=== PATIENT | male | born 1990 | race Caucasian/White ===

== ENCOUNTER 2016-09-02 12:25 | Emergency (ER) | END 2016-09-02 15:15 | disposition home or self-care (01) | DX: S83.005A Unspecified dislocation of left patella, initial encounter (principal); X50.1XXA Overexertion from prolonged static or awkward postures, initial encounter; Y92.9 Unspecified place or not applicable | CPT/HCPCS: 73562; 96372; J1885; Z7502 ==

== ENCOUNTER 2017-01-06 13:33 | Emergency (ER) | payer OTHER ==
[~2017-01-06] VITALS: Ht 185.4 cm; Wt 110.0 kg
[~2017-01-06 13:33] MED LIST: TRAM50TA2 PO
[2017-01-06 13:37] VITALS: Ht 185.4 cm; Wt 110.0 kg
[2017-01-06] MEDS ORDERED: ONDANSETRON (ODT) 4 MG TAB ODT STA (15:30)
[2017-01-06] MEDS ORDERED: LIDOCAINE/MYLANTA 40 ML BTL PO STA (15:30)
[2017-01-06] MEDS ORDERED: FAMOTIDINE 20 MG TAB PO STA (15:30)
[2017-01-06 15:44] LABS: ADD UMIC NO; URINE BILIRUBIN (Dip) NEGATIVE (NEGATIVE); URINE BLOOD (Dip) NEGATIVE (NEGATIVE); URINE COLOR LT. YELLOW (YELLOW); URINE GLUCOSE (Dip) NEGATIVE (NEGATIVE); URINE KETONES (Dip) NEGATIVE (NEGATIVE); URINE LEUKOCYTE ESTERASE (Dip) NEGATIVE (NEGATIVE); URINE NITRITE (Dip) NEGATIVE (NEGATIVE); URINE TOTAL PROTEIN (Dip) NEGATIVE (NEGATIVE); URINE UROBILINOGEN (Dip) 0.2 E.U./dL (0.1-1.0)
--- NOTE | 2017-01-06 16:09 | RADRPT ---
PROCEDURE: US Abdomen. CLINICAL INDICATION: 26-year-old male with abdominal pain. TECHNIQUE: Multiple real-time images were acquired of the patient's abdomen and retroperitoneum ut ilizing a high resolution transducer. COMPARISON: None FINDINGS: The pancreas is obscured by bowel gas. The liver is enlarged measuring 16.8 cm. There is increased echogenicity of the liver with no hepatic mass identified. The hepatic and portal veins are patent. The gallbladder wall measures 2.1 mm. A small amount of sludge is noted in the gallbladder. The com mon bile duct measured 3.8 mm and is normal. The right kidney is normal measuring 11.8 cm in length. IMPRESSION: 1. Increased echogenicity of the liver is noted and most commonly as a result of fatty infiltration. Steatohepatitis, vacuolar degeneration and cirrhosis of the liver are other causes. 2. Possible sludge in the gallbladder. 3. Normal right kidney with no evidence of hydronephrosis. RPTAT:AAJJ Physician Jaz Date Time Electronically viewed and signed by Physician Jaz on 01/06/2017 16:09 JONATHON/
[2017-01-06 16:33] LABS: ADD SCAN DIFF NO
[2017-01-06 16:34] LABS: BASOPHILS % 0.3 % (0.0-2.0); EOSINOPHILS # 0.2 10^3/ul (0.0-0.5); EOSINOPHILS % 2.6 % (0.0-7.0); HEMATOCRIT 44.6 % (42.0-52.0); HEMOGLOBIN 14.7 g/dl (14.0-18.0); LYMPHOCYTES # 1.8 10^3/ul (0.8-2.9); MEAN CORPUSCULAR HEMOGLOBIN 28.5 pg (29.0-33.0); MEAN CORPUSCULAR VOLUME 86.6 fl (82.0-101.0); MEAN PLATELET VOLUME 9.4 fl (7.4-10.4); MONOCYTE # 0.4 10^3/ul (0.3-0.9); MONOCYTES % 6.7 % (0.0-11.0); NEUTROPHIL # 3.4 10^3/ul (1.6-7.5); NEUTROPHILS % 59.2 % (39.0-77.0); PLATELET COUNT 274 10^3/UL (140-415); RED BLOOD COUNT 5.15 10^6/ul (4.70-6.10); RED CELL DISTRIBUTION WIDTH 13.7 % (11.5-14.5); WHITE BLOOD COUNT 5.8 10^3/ul (4.8-10.8)
[2017-01-06 16:54] LABS: ALBUMIN 4.4 g/dl (3.3-4.9); ALBUMIN/GLOBULIN RATIO 1.15; BILIRUBIN,INDIRECT 0.2 mg/dl (0-1.1); BILIRUBIN,TOTAL 0.2 mg/dl (0.2-1.3); CALCIUM 9.4 mg/dl (8.4-10.2); CREATININE 0.77 mg/dl (0.61-1.24); POTASSIUM 4.8 mmol/L (3.5-5.1); TOTAL PROTEIN 8.2 g/dl (6.1-8.1)
[2017-01-06] MEDS ORDERED: NAPR-260 PO (17:20)
[2017-01-06] MEDS ORDERED: HYDR-906 PO (17:20)
[2017-01-06] MEDS ORDERED: ONDA4TAB14 PO (17:21)
--- NOTE | 2017-01-06 18:44 | ERD ---
ER Documentation Chief Complaint Date/Time DATE: 01/06/17 TIME: 18:43 Chief Complaint ap onset yesterday HPI Patient is a 26-year-old male with no past medical history who presents to the ED with epigastric pain 2 days. He states that the pain came on yesterday. He states that the pain has come and gone and states that the highest is been is a 9 out of 10. He has not taken any medication for symptoms. Denies vomiting or diarrhea. He states he does not have a decrease in appetite and is tolerating food and fluids. Had a normal appetite today. Last bowel movement was today. Denies fever or chills. Denies headache or dizziness. Denies chest pain, cough, shortness of breath or difficulty breathing. Denies recent travel or change in foods. No other complaints. ROS All systems reviewed and are negative except as per history of present illness. Medications Home Meds Active Scripts Ondansetron (Ondansetron Odt) 4 Mg Tab.rapdis, 4 MG PO Q6H Y for NAUSEA AND/OR VOMITING, #10 TAB Prov:SABA ROSALES PA-C 01/06/17 Hydrocodone/Acetaminophen ([place]asta 5-325 Tablet) 1 Each Tablet, 1 TAB PO Q6H Y for PAIN, #5 TAB Prov:SABA ROSALESC 01/06/17 Naproxen* (Naprosyn*) 500 Mg Tablet, 500 MG PO BID Y for PAIN AND/OR INFLAMMATION, #30 TAB Prov:SABA ROSALES-C 01/06/17 Tramadol HCl (Tramadol HCl) 50 Mg Tablet, 50 MG PO Q4 Y for PAIN, #10 TAB Prov:SABA ROSALES-C 09/02/16 Allergies Allergies: Coded Allergies: No Known Allergy (Unverified , 09/02/16) PMhx/Soc History of Surgery: Yes (Right knee 2014) Anesthesia Reaction: No Hx Neurological Disorder: No Hx Respiratory Disorders: No Hx Cardiac Disorders: No Hx Psychiatric Problems: No Hx Miscellaneous Medical Probl: No Hx Alcohol Use: No Hx Substance Use: No Hx Tobacco Use: Yes Smoking Status: Current every day smoker (3 cigarettes a day) FmHx Family History: No coronary disease, No diabetes, No other Physical Exam Vitals Vital Signs Date Time Temp Pulse Resp B/P Pulse Ox O2 Delivery O2 Flow Rate FiO2 01/06/17 13:37 97.8 90 18 131/77 97 Physical Exam GENERAL: Well-developed, well-nourished male. Appears in no acute distress. HEAD: Normocephalic, atraumatic. EYES: Pupils are equally reactive bilaterally. EOMs grossly intact. No conjunctival erythema. ENT: Moist mucous membranes. No uvula deviation. No kissing tonsils. No exudates. NECK: Supple. No lymphadenopathy or thyromegaly. No meningismus. negative kernig. negative brudinski. LUNG: Clear to auscultation bilaterally. No rhonchi, wheezing, rales or coarse breath sounds. HEART: Regular rate and rhythm. No murmurs, rubs or gallops. ABDOMEN: No scars, ecchymosis or rashes noted. Soft,Positive bowel sounds in all four quadrants. No rebound tenderness, no guarding. (-) McBurneys point tenderness. No CVA tenderness. Mild tenderness in the epigastric and right upper quadrant. BACK: No midline tenderness. Extremities: Equal pulses bilaterally. No peripheral clubbing, cyanosis or edema. No unilateral leg swelling. NEUROLOGIC: Alert and oriented. Moving all four extremities. 5/5 strength in all extremities. Normal speech. Steady gait. SKIN: Normal color. Warm and dry. No rashes or lesions. Capillary refill < 2 seconds Result Diagram: 01/06/17 1610 01/06/17 1610 Results 24 hrs Laboratory Tests Test 01/06/17 15:35 01/06/17 16:10 Urine Color LT. YELLOW Urine Clarity CLEAR Urine pH 6.0 Urine Specific [place] 1.015 Urine Ketones NEGATIVE Urine Nitrite NEGATIVE Urine Bilirubin NEGATIVE Urine Urobilinogen 0.2 E.U./dL Urine Leukocyte Esterase NEGATIVE Urine Hemoglobin NEGATIVE Urine Glucose NEGATIVE% Urine Total Protein NEGATIVE White Blood Count 5.810^3/ul Red Blood Count 5.1510^6/ul Hemoglobin 14.7g/dl Hematocrit 44.6% Mean Corpuscular Volume 86.6fl Mean Corpuscular Hemoglobin 28.5pg Mean Corpuscular Hemoglobin Concent 33.0g/dl Red Cell Distribution Width 13.7% Platelet Count 36947^3/UL Mean Platelet Volume 9.4fl Neutrophils % 59.2% Lymphocytes % 31.0% Monocytes % 6.7% Eosinophils % 2.6% Basophils % 0.3% Nucleated Red Blood Cells % 0.0/100WBC Neutrophils # 3.410^3/ul Lymphocytes # 1.810^3/ul Monocytes # 0.410^3/ul Eosinophils # 0.210^3/ul Basophils # 0.010^3/ul Nucleated Red Blood Cells # 0.010^3/ul Sodium Level 137mmol/L Potassium Level 4.8mmol/L Chloride Level 104mmol/L Carbon Dioxide Level 26mmol/L Anion Gap 12 Blood Urea Nitrogen 12mg/dl Creatinine 0.77mg/dl Glucose Level 82mg/dl Calcium Level 9.4mg/dl Total Bilirubin 0.2mg/dl Direct Bilirubin 0.00mg/dl Indirect Bilirubin 0.2mg/dl Aspartate Amino Transf (AST/SGOT) 35IU/L Alanine Aminotransferase (ALT/SGPT) 65IU/L Alkaline Phosphatase 77IU/L Total Protein 8.2g/dl Albumin 4.4g/dl Globulin 3.80g/dl Albumin/Globulin Ratio 1.15 Lipase 60U/L Current Medications Medications (Trade) Dose Ordered Sig/Benjamin Route PRN Reason Start Time Stop Time Status Last Admin Dose Admin Famotidine (Pepcid) 20 mg ONCE STAT PO 01/06/17 15:30 01/06/17 15:31 DC 01/06/17 16:12 Miscellaneous Medication (Gi Cocktail (2)) 40 ml ONCE STAT PO 01/06/17 15:30 01/06/17 15:31 DC 01/06/17 16:12 Ondansetron HCl (Zofran Odt) 4 mg ONCE STAT ODT 01/06/17 15:30 01/06/17 15:31 DC 01/06/17 16:12 Procedures/MDM ER COURSE: I kept the patient and/or family informed of laboratory and diagnostic imaging results throughout the emergency room course. EKG, MONITORS, & DIAGNOSTIC IMAGING: [place] [id number] Radiology Main Line: [phone] DIAGNOSTIC IMAGING REPORT Patient: NEO JEWELL : 1990 Age: 26 Sex: M MR #: [id number] DOS: 01/06/17 1530 Ordering MD: SABA ROSALES PA-C Location: [facility] Room/Bed: PROCEDURE: US Abdomen. CLINICAL INDICATION: 26-year-old male with abdominal pain. TECHNIQUE: Multiple real-time images were acquired of the patient's abdomen and retroperitoneum utilizing a high resolution transducer. COMPARISON: None FINDINGS: The pancreas is obscured by bowel gas. The liver is enlarged measuring 16.8 cm. There is increased echogenicity of the liver with no hepatic mass identified. The hepatic and portal veins are patent. The gallbladder wall measures 2.1 mm. A small amount of sludge is noted in the gallbladder. The common bile duct measured 3.8 mm and is normal. The right kidney is normal measuring 11.8 cm in length. IMPRESSION: 1. Increased echogenicity of the liver is noted and most commonly as a result of fatty infiltration. Steatohepatitis, vacuolar degeneration and cirrhosis of the liver are other causes. 2. Possible sludge in the gallbladder. 3. Normal right kidney with no evidence of hydronephrosis. RPTAT:AAJJ Physician Jaz Date Time Electronically viewed and signed by Physician Jaz on 01/06/2017 16:09 JM/ CC: SABA ROSALES PA-C MEDICATIONS: GI cocktail, Zofran. Tolerated well with no adverse reaction. Seen improvement in symptoms. LAB INTERPRETATION: CBC showed no evidence of systemic infection or severe anemia. CMP showed no evidence of electrolyte abnormalities, severe acidosis, alkalosis, renal failure , or liver disease. Lipase showed no evidence of acute pancreatitis. UA showed no evidence of leukocytes, nitrites or hematuria. MEDICAL DECISION MAKING: This is a 26-year-old male who presents with abdominal pain 2 days. Vital signs were reviewed. Patient is afebrile. Patient is not hypoxic. Patient is not toxic or ill-appearing. His ultrasound is read by radiologist shows 1. Increased echogenicity of the liver is noted and most commonly as a result of fatty infiltration. Steatohepatitis, vacuolar degeneration and cirrhosis of the liver are other causes. Possible sludge in the gallbladder. Normal right kidney with no evidence of hydronephrosis. Patient blood work was within normal limits with no elevation in bilirubin, ALT, AST or lipase. Patient likely has biliary colic. Low suspicion for ACS, AAA, perforated ulcer, bowel obstruction, cholecystitis, choledocholithiasis, cholangitis, pancreatitis, hepatic abscess, appendicitis, diverticulitis, gastroenteritis, hepatitis, peptic ulcer disease, HELLP syndrome. The patient to have close follow-up and return in 8-12 hours for reevaluation if symptoms worsen. DISCHARGE: At this time, patient is stable for discharge and outpatient management with no new complaints during the ER course. Patient was sent home with Jodie Ram and a copy of all imaging and laboratory studies and follow-up with PCP.. Patient will be discharged home with instructions to recheck for new or worsening symptoms such as fever, nausea, weakness, LOC and to follow up with primary care in the next 1-2 days. Patient was advised to return to the ER for any new or worsening symptoms. Plan was discussed and patient and/or family understands and agrees. Home instructions were given. Departure Diagnosis: Primary Impression: Biliary colic Condition: Stable Patient Instructions: Biliary Colic With Gallstone (Presumed) Additional Instructions: Call your primary care doctor TOMORROW for an appointment during the next 1-2 days.See the doctor sooner or return here if your condition worsens before your appointment time. SABA ROSALES PA-C January 06, 2017 18:44
== END 2017-01-06 17:34 | disposition home or self-care (01) ==
LOC: FTE 13:33
DX: K80.50 Calculus of bile duct without cholangitis or cholecystitis without obstruction (principal); F17.210 Nicotine dependence, cigarettes, uncomplicated
CPT/HCPCS: 36415; 76705; 80053; 81003; 83690; 85025; Z7502; Z7610